=== PATIENT | male | born 1975 | race Caucasian/White ===

== ENCOUNTER 2021-07-03 16:45 | Inpatient (IN) | payer OTHER ==
[~2021-07-03] VITALS: Ht 185.4 cm; Wt 117.2 kg
[2021-07-03 19:55] LABS: BASOPHILS ABSOLUTE AUTO 0.01 K/mm3 (0.00-0.23); BASOPHILS PERCENT AUTO 0 % (0-2); EOSINOPHILS PERCENT AUTO 0 % (0-6); Hematocrit 43.3 % (37.0-53.0); Hemoglobin 15.1 g/dL (13.5-17.5); IMMATURE GRAN ABSOLUTE AUTO 0.03 K/mm3 (0.00-0.10); IMMATURE GRAN PERCENT AUTO 0 % (0-1); LYMPHOCYTES PERCENT AUTO 6 % (21-46); MONOCYTES ABSOLUTE AUTO 0.15 K/mm3 (0.16-1.47); MONOCYTES PERCENT AUTO 2 % (4-13); Mean Corpuscular HGB 29.4 pg (26.0-34.0); Mean Corpuscular HGB Conc 34.9 g/dL (31.5-36.5); Mean Corpuscular Volume 84 fL (80-100); Mean Platelet Volume 10.1 fL (9.1-12.4); NEUTROPHILS ABSOLUTE AUTO 8.42 K/mm3 (1.96-9.15); NEUTROPHILS PERCENT AUTO 93 % (41-73); Platelet Count 187 K/mm3 (150-400); RDW Coefficient Variation 13.4 % (11.7-14.2); RDW Standard Deviation 41.4 fL (35.1-46.3); Red Blood Cell Count 5.14 M/mm3 (4.30-5.90); White Blood Cell Count 9.11 K/mm3 (4.00-11.30)
[2021-07-03 20:11] LABS: Alanine Aminotransfer (ALT/SGP 135 U/L (12-78); Albumin, Blood 2.9 g/dL (3.4-5.0); Albumin/Globulin Ratio 0.7 (0.8-1.8); Alk Phos 94 U/L (50-136); Anion Gap 9 mmol/L (6-16); Aspartate Aminotrans (AST/SGOT 94 U/L (12-37); Bilirubin, Total 0.7 mg/dL (0.1-1.0); Blood Urea Nitrogen 10 mg/dL (8-24); Bun/Creatinine Ratio 10.7 (12.0-20.0); CO2, Blood 28 mmol/L (21-32); Calcium, Blood 8.1 mg/dL (8.5-10.1); Chloride, Blood 97 mmol/L (98-108); Creatinine, Blood 0.93 mg/dL (0.60-1.20); Globulin, Blood 4.1 g/dL (2.2-4.0); Glomerular Filtration Rate >60 (60-); Glucose, Blood 124 mg/dL (70-99); Potassium, Blood 3.4 mmol/L (3.5-5.5); Sodium, Blood 134 mmol/L (136-145)
[2021-07-03 21:12] LABS: C-Reactive Protein, High Sens. >190.000 mg/L (0.000-3.000)
[2021-07-04 06:51] LABS: BASOPHILS ABSOLUTE AUTO 0.01 K/mm3 (0.00-0.23); BASOPHILS PERCENT AUTO 0 % (0-2); EOSINOPHILS PERCENT AUTO 0 % (0-6); Hematocrit 42.1 % (37.0-53.0); Hemoglobin 14.3 g/dL (13.5-17.5); IMMATURE GRAN ABSOLUTE AUTO 0.06 K/mm3 (0.00-0.10); IMMATURE GRAN PERCENT AUTO 1 % (0-1); LYMPHOCYTES ABSOLUTE AUTO 0.44 K/mm3 (0.84-5.20); LYMPHOCYTES PERCENT AUTO 5 % (21-46); MONOCYTES ABSOLUTE AUTO 0.21 K/mm3 (0.16-1.47); MONOCYTES PERCENT AUTO 2 % (4-13); Mean Corpuscular HGB 28.7 pg (26.0-34.0); Mean Corpuscular Volume 85 fL (80-100); Mean Platelet Volume 9.9 fL (9.1-12.4); NEUTROPHILS ABSOLUTE AUTO 8.08 K/mm3 (1.96-9.15); NEUTROPHILS PERCENT AUTO 92 % (41-73); Platelet Count 175 K/mm3 (150-400); RDW Coefficient Variation 13.4 % (11.7-14.2); RDW Standard Deviation 41.6 fL (35.1-46.3); Red Blood Cell Count 4.98 M/mm3 (4.30-5.90)
[2021-07-04 07:16] LABS: Alanine Aminotransfer (ALT/SGP 122 U/L (12-78); Albumin, Blood 2.6 g/dL (3.4-5.0); Albumin/Globulin Ratio 0.7 (0.8-1.8); Alk Phos 95 U/L (50-136); Anion Gap 6 mmol/L (6-16); Aspartate Aminotrans (AST/SGOT 70 U/L (12-37); Bilirubin, Total 0.5 mg/dL (0.1-1.0); Blood Urea Nitrogen 11 mg/dL (8-24); Bun/Creatinine Ratio 15.5 (12.0-20.0); CO2, Blood 27 mmol/L (21-32); Chloride, Blood 99 mmol/L (98-108); Creatinine, Blood 0.71 mg/dL (0.60-1.20); Globulin, Blood 3.9 g/dL (2.2-4.0); Glomerular Filtration Rate >60 (60-); Glucose, Blood 129 mg/dL (70-99); Potassium, Blood 3.9 mmol/L (3.5-5.5); Sodium, Blood 132 mmol/L (136-145); Total Protein, Blood 6.5 g/dL (6.4-8.2)
--- NOTE | 2021-07-04 07:50 | NUR ---
RECIEVED THIS PATIENT FROM THE ER, ALERT AND ORIENTED X4 C/O SOB WHEN UP TO CAMODE. DIMINISHED IN HIS BASES WHITH WHEEZE. NO OTHER COMPLAINTS. SATS 90 AND ABOVE ON 6L NC. STAFF WILL CONTINUE TO MONITOR.
--- NOTE | 2021-07-04 17:32 | NUR ---
SHIFT SUMMARY PT TITRATED UP TO 10L HIGH FLOW NASAL CANULA TODAY. SATING IN THE MID TO LOW 90S WITH THIS WHILE LYING PRONE. WHEN SITTING UPRIGHT OR MOVING IN BED, PT DESATS EASILY AND REQUIRES 15L HIGH FLOW NASAL TO MAINTAIN ABOVE 90%. NO OTHER ACUTE CHANGES IN ASSESSMENT AT THIS TIME. VS REVIEWED. CALL LIGHT IN REACH.
--- NOTE | 2021-07-05 04:54 | NUR ---
SHIFT SUMMARY A/OX4, IND TO BSC. CURRENTLY ON 9L HIGH FLOW NC. CONT. BIOX IN PLACE WITH SATS GREATER THAN 90. OCC PRODUCTIVE COUGH WITH YELLOWISH BILLINGS SPUTUM. VSS, NO ACUTE CHANGES AT THIS TIME. BED IN LOWEST POSITION WITH CALL LIGHT IN REACH. WILL CONTINUE TO MONITOR AND REPORT TO ONCOMING RN.
--- NOTE | 2021-07-05 18:38 | NUR ---
SHIFT SUMMARY PT REMAINS ON HIGHFLOW N/C 2 9L AND SATS IN 90'S. PT DID DESAT QUICKLY INTO THE 80'S WITH ANY ACTIVITY. PT DENIES ANY PAINS AND HAS BEEN PLEASANT AND COOPERATIVE WITH CARE T/O DAY. NO OTHER CHANGES THIS SHIFT.
[2021-07-06 05:10] LABS: BASOPHILS ABSOLUTE AUTO 0.02 K/mm3 (0.00-0.23); BASOPHILS PERCENT AUTO 0 % (0-2); EOSINOPHILS PERCENT AUTO 0 % (0-6); Hematocrit 42.9 % (37.0-53.0); Hemoglobin 14.8 g/dL (13.5-17.5); IMMATURE GRAN ABSOLUTE AUTO 0.08 K/mm3 (0.00-0.10); IMMATURE GRAN PERCENT AUTO 1 % (0-1); LYMPHOCYTES PERCENT AUTO 7 % (21-46); MONOCYTES ABSOLUTE AUTO 0.64 K/mm3 (0.16-1.47); MONOCYTES PERCENT AUTO 5 % (4-13); Mean Corpuscular HGB 28.8 pg (26.0-34.0); Mean Corpuscular HGB Conc 34.5 g/dL (31.5-36.5); Mean Corpuscular Volume 84 fL (80-100); Mean Platelet Volume 9.8 fL (9.1-12.4); NEUTROPHILS ABSOLUTE AUTO 10.84 K/mm3 (1.96-9.15); NEUTROPHILS PERCENT AUTO 88 % (41-73); Platelet Count 282 K/mm3 (150-400); RDW Coefficient Variation 13.2 % (11.7-14.2); RDW Standard Deviation 40.9 fL (35.1-46.3); Red Blood Cell Count 5.13 M/mm3 (4.30-5.90); White Blood Cell Count 12.38 K/mm3 (4.00-11.30)
--- NOTE | 2021-07-06 05:35 | NUR ---
SHIFT SUMMARY NO ACUTE CHANGES THIS SHIFT, NO C/O ANY KIND, PT REMAINS ON 15L 02 W/SATS GREATER THAN 90%, SLEPT IN PRONE POSITION, SLEEPING AT THIS TIME, CALL LIGHT IN REACH, WILL CONT TO MONITOR UNTIL REPORT GIVEN TO DAY RN.
[2021-07-06 05:50] LABS: Alanine Aminotransfer (ALT/SGP 183 U/L (12-78); Albumin, Blood 2.5 g/dL (3.4-5.0); Albumin/Globulin Ratio 0.7 (0.8-1.8); Alk Phos 81 U/L (50-136); Anion Gap 5 mmol/L (6-16); Aspartate Aminotrans (AST/SGOT 75 U/L (12-37); Bilirubin, Total 0.9 mg/dL (0.1-1.0); Blood Urea Nitrogen 15 mg/dL (8-24); Bun/Creatinine Ratio 22.4 (12.0-20.0); CO2, Blood 28 mmol/L (21-32); Calcium, Blood 8.2 mg/dL (8.5-10.1); Chloride, Blood 102 mmol/L (98-108); Creatinine, Blood 0.67 mg/dL (0.60-1.20); Globulin, Blood 3.8 g/dL (2.2-4.0); Glomerular Filtration Rate >60 (60-); Glucose, Blood 134 mg/dL (70-99); Sodium, Blood 135 mmol/L (136-145); Total Protein, Blood 6.3 g/dL (6.4-8.2)
--- NOTE | 2021-07-06 17:02 | NUR ---
SHIFT SUMMARY PATIENT HAS HAD NO ACUTE EVENTS DURING SHIFT. PATIENT HAS BEEN ON 15L SATTING IN THE LOW TO MID 90S THROUGHOUT SHIFT. PATIENT HAS HAD NO COMPLAINTS OF SHORTNESS OF BREATH, PAIN, NAUSEA, VOMITTING DURING THIS SHIFT. PATIENT HAS ABULATED TO THE BATHROOM USING PORTABLE OXYGEN WITH MINIMAL DESATTING. PATIENT USES BEDSIDE URINAL INDEPENDENTLY. PATIENT IS ABLE TO MAKE NEEDS KNOWN AND CALLS APPROPRIATELY. BED IN LOWEST AND LOCKED POSITION. CALL LIGHT IN REACH AND WILL CONTINUE TO MONITOR UNTIL END OF SHIFT.
--- NOTE | 2021-07-07 04:50 | NUR ---
SHIFT SUMMARY NO ACUTE CHANGES TO REPORT THIS SHIFT. PT HAS RESTED MOST OF THE NIGHT AND HAS DENIED NEEDS. PT REAMINS ON 15L HIGH FLOW AND IS MAINTAINING SATS IN THE 90'S. NO SOB AT REST, RESP E/U. OCCASIONAL DRY COUGH. VITALS ARE STABLE. BED IN LOWEST POSITION, CALL LIGHT WITHIN REACH.
[2021-07-07 05:35] LABS: BASOPHILS ABSOLUTE AUTO 0.02 K/mm3 (0.00-0.23); BASOPHILS PERCENT AUTO 0 % (0-2); EOSINOPHILS PERCENT AUTO 0 % (0-6); Hematocrit 44.7 % (37.0-53.0); Hemoglobin 15.3 g/dL (13.5-17.5); IMMATURE GRAN ABSOLUTE AUTO 0.08 K/mm3 (0.00-0.10); IMMATURE GRAN PERCENT AUTO 1 % (0-1); LYMPHOCYTES ABSOLUTE AUTO 0.81 K/mm3 (0.84-5.20); LYMPHOCYTES PERCENT AUTO 9 % (21-46); MONOCYTES ABSOLUTE AUTO 0.61 K/mm3 (0.16-1.47); MONOCYTES PERCENT AUTO 7 % (4-13); Mean Corpuscular HGB Conc 34.2 g/dL (31.5-36.5); Mean Corpuscular Volume 85 fL (80-100); Mean Platelet Volume 9.6 fL (9.1-12.4); NEUTROPHILS ABSOLUTE AUTO 7.45 K/mm3 (1.96-9.15); NEUTROPHILS PERCENT AUTO 83 % (41-73); Platelet Count 297 K/mm3 (150-400); RDW Coefficient Variation 13.2 % (11.7-14.2); RDW Standard Deviation 40.9 fL (35.1-46.3); Red Blood Cell Count 5.28 M/mm3 (4.30-5.90); White Blood Cell Count 8.97 K/mm3 (4.00-11.30)
[2021-07-07 06:09] LABS: Alanine Aminotransfer (ALT/SGP 268 U/L (12-78); Albumin, Blood 2.7 g/dL (3.4-5.0); Albumin/Globulin Ratio 0.7 (0.8-1.8); Alk Phos 81 U/L (50-136); Anion Gap 4 mmol/L (6-16); Aspartate Aminotrans (AST/SGOT 71 U/L (12-37); Bilirubin, Total 0.7 mg/dL (0.1-1.0); Blood Urea Nitrogen 15 mg/dL (8-24); Bun/Creatinine Ratio 23.5 (12.0-20.0); CO2, Blood 28 mmol/L (21-32); Chloride, Blood 104 mmol/L (98-108); Creatinine, Blood 0.64 mg/dL (0.60-1.20); Globulin, Blood 3.7 g/dL (2.2-4.0); Glomerular Filtration Rate >60 (60-); Glucose, Blood 130 mg/dL (70-99); Potassium, Blood 4.7 mmol/L (3.5-5.5); Sodium, Blood 136 mmol/L (136-145); Total Protein, Blood 6.4 g/dL (6.4-8.2)
--- NOTE | 2021-07-07 10:19 | NUR ---
NURSE NOTE PATIENT HAS BEEN TITRATED DOWN TO 11 LITERS HIGH FLOW AND MAINTAINING 91 PERCENT SATURATION.
--- NOTE | 2021-07-07 12:14 | NUR ---
NURSE NOTE PATIENTS HIGH FLOW OXYGEN RATE WAS DECREASED FROM 10L TO 9L WITH PATIENT MAINTAINING SATURATIONS ABOVE 93 PERCENT.
--- NOTE | 2021-07-07 16:56 | NUR ---
SHIFT SUMMARY NO ACUTE CHANGES THIS SHIFT. PATIENT HAS BEEN PLEASENT AND COOPERATIVE WITH CARE. ALERT AND ORIENTED X4. PATIENT CALLS APPROPRIATELY AND MAKES NEEDS KNOWN. PATIENT HAS BEEN TITRATED DOWN TO 8 LITERS FROM 13 LITERS AT THE START OF SHIFT. PATIENT MAINTAINED SATS ABOVE 94 ON 8 LITERS. GOT ORDER FROM MD TO REMOVE PULSE OX IF PATIENT MAINTAINED ABOUT 92 PERCENT. BED IN LOCKED AND LOWERED POSITION AND CALL LIGHT IN REACH.
[2021-07-08 05:27] LABS: BASOPHILS ABSOLUTE AUTO 0.02 K/mm3 (0.00-0.23); BASOPHILS PERCENT AUTO 0 % (0-2); EOSINOPHILS PERCENT AUTO 0 % (0-6); Hematocrit 46.2 % (37.0-53.0); Hemoglobin 15.7 g/dL (13.5-17.5); IMMATURE GRAN ABSOLUTE AUTO 0.17 K/mm3 (0.00-0.10); IMMATURE GRAN PERCENT AUTO 2 % (0-1); LYMPHOCYTES ABSOLUTE AUTO 0.88 K/mm3 (0.84-5.20); LYMPHOCYTES PERCENT AUTO 9 % (21-46); MONOCYTES ABSOLUTE AUTO 0.77 K/mm3 (0.16-1.47); MONOCYTES PERCENT AUTO 8 % (4-13); Mean Corpuscular HGB 28.9 pg (26.0-34.0); Mean Corpuscular Volume 85 fL (80-100); Mean Platelet Volume 10.2 fL (9.1-12.4); NEUTROPHILS ABSOLUTE AUTO 7.99 K/mm3 (1.96-9.15); NEUTROPHILS PERCENT AUTO 81 % (41-73); Platelet Count 318 K/mm3 (150-400); RDW Coefficient Variation 13.2 % (11.7-14.2); RDW Standard Deviation 40.6 fL (35.1-46.3); Red Blood Cell Count 5.44 M/mm3 (4.30-5.90); White Blood Cell Count 9.83 K/mm3 (4.00-11.30)
[2021-07-08 06:22] LABS: Alanine Aminotransfer (ALT/SGP 243 U/L (12-78); Albumin, Blood 2.9 g/dL (3.4-5.0); Albumin/Globulin Ratio 0.8 (0.8-1.8); Alk Phos 83 U/L (50-136); Anion Gap 4 mmol/L (6-16); Aspartate Aminotrans (AST/SGOT 44 U/L (12-37); Bilirubin, Total 0.7 mg/dL (0.1-1.0); Blood Urea Nitrogen 15 mg/dL (8-24); Bun/Creatinine Ratio 23.3 (12.0-20.0); CO2, Blood 27 mmol/L (21-32); Calcium, Blood 8.3 mg/dL (8.5-10.1); Chloride, Blood 104 mmol/L (98-108); Creatinine, Blood 0.65 mg/dL (0.60-1.20); Globulin, Blood 3.8 g/dL (2.2-4.0); Glomerular Filtration Rate >60 (60-); Glucose, Blood 130 mg/dL (70-99); Potassium, Blood 4.7 mmol/L (3.5-5.5); Sodium, Blood 135 mmol/L (136-145); Total Protein, Blood 6.7 g/dL (6.4-8.2)
--- NOTE | 2021-07-08 06:43 | NUR ---
46 YEAR OLD mALE COVID 19 POSITIVE CONTINUES TO SHOW IMPROVEMENT WITH SOME WEANING FROM 15 L TO 8 L HIGH FLOW OXYGEN. ON ORAL STEROIDS & TOOK TRAZODONE AT HS & APPEARED TO HAVE GOOD REST. PRONE POSTIONING MOST OF NIGHT.
--- NOTE | 2021-07-08 18:14 | NUR ---
PATIENT IS ALERT AND ORIENTED AND COOPERATIVE WITH CARE. SBA TO BATHROOM. TITRATED FROM 8L O2 HIGH FLOW NC TO 4L O2 HIGH FLOW NC THIS AFTERNOON. NO C/O SOB. UP IN THE RECLINER SINCE LUNCH. WILL CONTINUE TO MONITOR
--- NOTE | 2021-07-08 20:20 | NUR ---
covid 19 PT weaned from 8 l high flow o2 to 4 l oxygen earlier. Up in bedise chair & hopeful he will be weaned off oxygen soon & dc home.
--- NOTE | 2021-07-09 03:25 | NUR ---
46 year old Male with covid 19 was weaned down from 8 l to 4 l nc yesterday & he declined to wean down to 2 l at HS. Continues on oral steroid. Up to chair tolerating diet & activity, goal to wean off oxygen & DC home.
[2021-07-09 05:25] LABS: BASOPHILS ABSOLUTE AUTO 0.04 K/mm3 (0.00-0.23); BASOPHILS PERCENT AUTO 0 % (0-2); EOSINOPHILS PERCENT AUTO 0 % (0-6); Hematocrit 46.4 % (37.0-53.0); Hemoglobin 15.9 g/dL (13.5-17.5); IMMATURE GRAN ABSOLUTE AUTO 0.26 K/mm3 (0.00-0.10); IMMATURE GRAN PERCENT AUTO 3 % (0-1); LYMPHOCYTES ABSOLUTE AUTO 0.98 K/mm3 (0.84-5.20); LYMPHOCYTES PERCENT AUTO 9 % (21-46); MONOCYTES PERCENT AUTO 6 % (4-13); Mean Corpuscular HGB Conc 34.3 g/dL (31.5-36.5); Mean Corpuscular Volume 85 fL (80-100); Mean Platelet Volume 9.9 fL (9.1-12.4); NEUTROPHILS ABSOLUTE AUTO 8.55 K/mm3 (1.96-9.15); NEUTROPHILS PERCENT AUTO 82 % (41-73); Platelet Count 373 K/mm3 (150-400); RDW Coefficient Variation 13.1 % (11.7-14.2); RDW Standard Deviation 40.8 fL (35.1-46.3); Red Blood Cell Count 5.48 M/mm3 (4.30-5.90); White Blood Cell Count 10.43 K/mm3 (4.00-11.30)
[2021-07-09 05:59] LABS: Alanine Aminotransfer (ALT/SGP 236 U/L (12-78); Albumin/Globulin Ratio 0.8 (0.8-1.8); Alk Phos 76 U/L (50-136); Anion Gap 4 mmol/L (6-16); Aspartate Aminotrans (AST/SGOT 38 U/L (12-37); Bilirubin, Total 0.7 mg/dL (0.1-1.0); Blood Urea Nitrogen 15 mg/dL (8-24); Bun/Creatinine Ratio 21.6 (12.0-20.0); CO2, Blood 27 mmol/L (21-32); Calcium, Blood 8.5 mg/dL (8.5-10.1); Chloride, Blood 103 mmol/L (98-108); Globulin, Blood 3.9 g/dL (2.2-4.0); Glomerular Filtration Rate >60 (60-); Glucose, Blood 134 mg/dL (70-99); Potassium, Blood 4.7 mmol/L (3.5-5.5); Sodium, Blood 134 mmol/L (136-145); Total Protein, Blood 6.9 g/dL (6.4-8.2)
[2021-07-09] MEDS ORDERED: DEXA6 PO (15:18)
[2021-07-09] MEDS ORDERED: TRAZ50 PO (15:19)
== END 2021-07-09 16:24 | disposition home or self-care (01) | DRG 871 ==
LOC: ER 16:45 → MEDS 20:36 → ENPENDDIS 07-09 15:28 → MEDS 07-09 16:24
PROVIDERS: Internal Medicine; Physician Assistant; ADMIT Internal Medicine
PROC: 8E0ZXY6 Isolation (ICD-10-PCS; principal; 2021-07-03)
PROC: XW033E5 Introduction of Remdesivir Anti-infective into Peripheral Vein, Percutaneous Approach, New Technology Group 5 (ICD-10-PCS; 2021-07-03)
PROC: 3E0333Z Introduction of Anti-inflammatory into Peripheral Vein, Percutaneous Approach (ICD-10-PCS; 2021-07-03)
DX: A41.89 Other specified sepsis (principal); U07.1 COVID-19; J96.01 Acute respiratory failure with hypoxia; J12.82 Pneumonia due to coronavirus disease 2019; E87.6 Hypokalemia; R79.89 Other specified abnormal findings of blood chemistry; E66.9 Obesity, unspecified; Z68.34 Body mass index [BMI] 34.0-34.9, adult
CPT/HCPCS: 36415; 71045; 80053; 83605; 83880; 84145; 85025; 85379; 86141; 94762; 96365; 96372-59; 96375; 99285-25; A9270; J1100; J1650; J2405; J7030

== ENCOUNTER 2021-07-23 10:56 | Emergency (ER) | payer OTHER ==
[~2021-07-23] VITALS: Ht 185.4 cm; Wt 108.9 kg
[~2021-07-23 10:56] MED LIST: DEXA6 PO; TRAZ50 PO
[2021-07-23 11:35] LABS: BASOPHILS ABSOLUTE AUTO 0.03 K/mm3 (0.00-0.23); BASOPHILS PERCENT AUTO 0 % (0-2); EOSINOPHILS ABSOLUTE AUTO 0.01 K/mm3 (0.00-0.68); EOSINOPHILS PERCENT AUTO 0 % (0-6); Hematocrit 45.1 % (37.0-53.0); Hemoglobin 15.7 g/dL (13.5-17.5); IMMATURE GRAN ABSOLUTE AUTO 0.07 K/mm3 (0.00-0.10); IMMATURE GRAN PERCENT AUTO 1 % (0-1); LYMPHOCYTES PERCENT AUTO 7 % (21-46); MONOCYTES ABSOLUTE AUTO 0.81 K/mm3 (0.16-1.47); MONOCYTES PERCENT AUTO 7 % (4-13); Mean Corpuscular HGB 29.2 pg (26.0-34.0); Mean Corpuscular HGB Conc 34.8 g/dL (31.5-36.5); Mean Corpuscular Volume 84 fL (80-100); Mean Platelet Volume 9.5 fL (9.1-12.4); NEUTROPHILS ABSOLUTE AUTO 9.63 K/mm3 (1.96-9.15); NEUTROPHILS PERCENT AUTO 85 % (41-73); Platelet Count 257 K/mm3 (150-400); RDW Coefficient Variation 13.4 % (11.7-14.2); Red Blood Cell Count 5.38 M/mm3 (4.30-5.90); White Blood Cell Count 11.35 K/mm3 (4.00-11.30)
[2021-07-23 11:48] LABS: Alanine Aminotransfer (ALT/SGP 126 U/L (12-78); Albumin, Blood 3.8 g/dL (3.4-5.0); Alk Phos 78 U/L (50-136); Anion Gap 10 mmol/L (6-16); Aspartate Aminotrans (AST/SGOT 19 U/L (12-37); Bilirubin, Total 0.9 mg/dL (0.1-1.0); Blood Urea Nitrogen 7 mg/dL (8-24); Bun/Creatinine Ratio 9.5 (12.0-20.0); CO2, Blood 22 mmol/L (21-32); Calcium, Blood 9.7 mg/dL (8.5-10.1); Chloride, Blood 101 mmol/L (98-108); Creatinine, Blood 0.73 mg/dL (0.60-1.20); Globulin, Blood 3.9 g/dL (2.2-4.0); Glomerular Filtration Rate >60 (60-); Glucose, Blood 138 mg/dL (70-99); Potassium, Blood 3.4 mmol/L (3.5-5.5); Sodium, Blood 133 mmol/L (136-145); Total Protein, Blood 7.7 g/dL (6.4-8.2); Troponin I <0.015 ng/mL (0.000-0.040)
[2021-07-23 12:21] LABS: International Normalized Ratio 0.93; Prothrombin Time Results 10.1 Sec (9.7-11.5)
[2021-07-23 13:19] LABS: Source, Urine Clean Catch
[2021-07-23 13:27] LABS: Appearance, Urine Clear (Clear); Bilirubin, Urine Neg (Neg); Blood, Urine Neg (Neg); Color, Urine Yellow (P-Yellow); Glucose Qualitative, Urine Neg (Neg); Ketones, Urine 3+ (Neg); Leukocyte Esterase, Urine Neg (Neg); Nitrite, Urine Neg (Neg); Protein, Urine Neg (Neg); Specific Gravity, Urine 1.015 (1.003-1.022); Urobilinogen, Urine NORM (Normal)
[2021-07-23] MEDS ORDERED: ESOMEPRAZOLE MA40 MG PO (14:30)
[2021-07-23] MEDS ORDERED: METO5A PO (14:30)
== END 2021-07-23 16:30 | disposition home or self-care (01) ==
LOC: ER 10:56
PROVIDERS: Physician Assistant
DX: R07.89 Other chest pain (principal); R11.2 Nausea with vomiting, unspecified; K21.00 Gastro-esophageal reflux disease with esophagitis, without bleeding
CPT/HCPCS: 36415; 71045; 80053; 81003; 83880; 84484; 85025; 85610; 85730; 93005; 93010; 96374; 96375; 96376; 99285-25; A9270; J2270; J2405